=== PATIENT | male | born 1970 | race Caucasian/White ===

== ENCOUNTER 2020-01-01 18:40 | Emergency (ER) | payer OTHER ==
[2020-01-01] MEDS ORDERED: SODIUM CHLORIDE 1,000 ML IV STA (18:47)
[2020-01-01] MEDS ORDERED: ACETAMINOPHEN 1000 MG/100 ML VIAL (NON FORMULARY) IVPB ONE (18:47)
[2020-01-01] MEDS ORDERED: METOCLOPRAMIDE HCL INJECTION 10 MG/2 ML VIAL IVPB ONE (18:47)
--- NOTE | 2020-01-01 18:48 | PDOC ---
Rapid Medical Evaluation Time Seen by Provider: 01/01/20 18:44 Medical Evaluation: 01/01/20 18:44 Pt presents for evaluation of a headache for "months". He has seen his PCP and was told to take Tylenol and Motrin but has no relief of his symptoms. Woke up with worsening pain this morning so he came to the ER for evaluation. Admits to associated dizziness, light headedness. Exam: No gross neuro deficits, gait intact. BP 180/100 Orders: basic labs, IV Pt to proceed to the ER for further evaluation Discharge Disposition - Diagnosis Headache Qualifiers: Headache type: unspecified Headache chronicity pattern: acute headache Intractability: not intractable Qualified Code(s): R51 - Headache - Referrals - Patient Instructions - Post Discharge Activity
[2020-01-01 18:49] VITALS: TEMP 98.7; BMI 28.3
[2020-01-01 19:30] LABS: BASO % 0.2 % (0-2.0); HEMATOCRIT 41.8 % (35.4-49); HEMOGLOBIN 14.5 GM/dL (11.7-16.9); LYMPH % 22.1 % (8-40); MCH 30.2 pg (25.7-33.7); MCHC 34.6 g/dl (32.0-35.9); MEAN CELL VOLUME 87.3 fl (80-96); MEAN PLT VOLUME 8.9 fl (7.5-11.1); MONO % 8.6 % (3.8-10.2); NEUT % 68.1 % (42.8-82.8); PLATELET COUNT 203 K/MM3 (134-434); RBC 4.79 M/mm3 (4.00-5.60); RDW 13.3 % (11.9-15.9); WHITE BLOOD COUNT 5.1 K/mm3 (4.0-10.0)
--- NOTE | 2020-01-01 20:03 | PDOC ---
History of Present Illness - General Chief Complaint: Headache Stated Complaint: HEADACHE Time Seen by Provider: 01/01/20 18:44 - History of Present Illness Initial Comments: Clarke Vyas is a 49 y/o male with no reported PMH presenting today with headache. Reports that the headache has been going on for four months. Reports that the pain is intermittent, but does not occur at a specific time during the day. States that he cannot think of anything that exacerbates or relieves the headache. Reports that the headache is dull and occurs intermittently over the right parietal and occipital areas. No weakness. No jaw claudication. Reports mild lightheadedness. No fever/chills. No vision changes. No chest pain/shortness of breath. No abdominal pain. No back pain. No diarrhea/dysuria. He had a CT scan of the head in October [address] [facility] which was negative for acute intracranial pathology. His headache has not changed in quality since his visit to [facility]. Reports that he usually drinks over 10 beers each weekend, but tried to stop drinking two months ago to help with his headache. Reports that yesterday he drank 4-5 beers. Reports shaking in bilateral upper extremities. No hallucinations. Past History - Medical History Allergies/Adverse Reactions: Allergies Allergy/AdvReac Type Severity Reaction Status Date / Time No Known Allergies Allergy Verified 01/01/20 18:44 Home Medications: Ambulatory Orders Amoxicillin - [Amoxicillin 500mg Capsule -] 500 mg PO TID 5 Days #15 capsule Oxymetazoline HCl [Nasal Moca Sinus] 30 ml NS BID PRN 5 Days #1 spray 01/01/20 - Psycho-Social/Smoking History Smoking History: Never smoked Information on smoking cessation initiated: No - Substance Abuse Hx (Audit-C & DAST Scrn) In the last yr the pt used illegal drug/Rx for NonMed reason: No Score: Yes response is considered Positive: 0 Screen Result (Positive result requires Nsg. DAST-10): Negative Review of Systems - Review of Systems Comments:: GENERAL/CONSTITUTIONAL: No fever or chills. No weakness._ HEAD, EYES, EARS, NOSE AND THROAT: No change in vision. No change in hearing. No sore throat._ CARDIOVASCULAR: No chest pain or shortness of breath_ RESPIRATORY: Denies cough, hemoptysis_ GASTROINTESTINAL: No nausea, vomiting, diarrhea or constipation._ GENITOURINARY: No dysuria, frequency, or change in urination._ MUSCULOSKELETAL: No joint or muscle swelling or pain. No neck or back pain._ SKIN: No rash_ NEUROLOGIC: Reports headache. Reports mild lightheadedness. No vertigo, loss of consciousness, or change in strength/sensation._ ENDOCRINE: No increased thirst. No abnormal weight change_ HEMATOLOGIC/LYMPHATIC: No anemia, easy bleeding, or history of blood clots._ ALLERGIC/IMMUNOLOGIC: No hives or skin allergy._ *Physical Exam - Vital Signs Last Vital Signs Temp Pulse Resp BP Pulse Ox 98.7 F 88 18 159/76 100 01/01/20 18:44 01/01/20 19:25 01/01/20 19:25 01/01/20 19:25 01/01/20 19:25 - Physical Exam GENERAL: Awake, alert, and oriented to person/place/time, in no acute distress_ HEAD: No signs of trauma, normocephalic, atraumatic _ EYES: PERRLA, EOMI, sclera anicteric, conjunctiva clear_ ENT: Hearing grossly normal, nares patent, oropharynx clear without exudates. Erythematous ear canals bilaterally with mild bullous in the right superior TM. No uvular deviation. Moist mucosa. Positive tongue fasciculations. NECK: Normal ROM, supple, no lymphadenopathy, JVD, or masses_ LUNGS: No distress, speaks in full sentences, clear to auscultation bilaterally _ HEART: Regular rate and rhythm, normal S1 and S2, no murmurs appreciated, peripheral pulses normal and equal bilaterally._ ABDOMEN: Soft, nontender, normoactive bowel sounds. No guarding, no rebound. No masses_ EXTREMITIES: Bilateral tremors on outstretched arms. Normal range of motion, no edema. No clubbing or cyanosis_ NEUROLOGICAL: CN II-XII tested and intact. Sensation intact to sharp/dull differentiation in all extremities. Motor: Normal tone and bulk. No abnormal movements appreciated. No pronator drift. Strength tested and 5/5 in bilateral wrist flexion/extension, elbow flexion/extension, shoulder abduction, straight leg raise, knee flexion/ extension, ankle dorsiflexion/plantarflexion. Patient ambulates with a steady gait. Coordination: Finger to nose and heel to diallo testing intact bilaterally. SKIN: Warm, Dry, normal turgor, no rashes or lesions noted ED Treatment Course - LABORATORY CBC & Chemistry Diagram: 01/01/20 19:15 01/01/20 19:15 - ADDITIONAL ORDERS Additional order review: 01/01/20 19:15 RBC 4.79 MCV 87.3 MCHC 34.6 RDW 13.3 MPV 8.9 Neutrophils % 68.1 Lymphocytes % 22.1 Monocytes % 8.6 Eosinophils % 1.0 Basophils % 0.2 - Medications Given in the ED: ED Medications Discontinued Medications Generic Name Dose Route Start Last Admin Trade Name Aleksander PRN Reason Stop Dose Admin Acetaminophen 1,000 mg 01/01/20 18:47 01/01/20 20:01 Ofirmev Injection - IVPB 01/01/20 18:48 Not Given ONCE ONE Diphenhydramine HCl 12.5 mg 01/01/20 18:47 01/01/20 20:01 Benadryl Injection - IVPB 01/01/20 18:48 Not Given ONCE ONE Sodium Chloride 1,000 mls @ 1,000 mls/hr 01/01/20 18:47 01/01/20 20:01 Normal Saline - IV 01/01/20 19:46 Not Given ASDIR STA Metoclopramide HCl 10 mg 01/01/20 18:47 01/01/20 20:01 Reglan Injection - IVPB 01/01/20 18:48 Not Given ONCE ONE Medical Decision Making - Medical Decision Making 49M with no reported PMH presenting today with headache for the past four months. Reports ETOH use yesterday after [address] head negative at [facility] October 2019. Pain has slightly worsened but has not changed in quality since his CT scan. Neuro exam does not show any focal neuro findings. DDx includes ETOH withdrawal vs tension headache vs other intracranial pathology. -cbc, cmp -ekg -CT head -librium -urine 01/01/20 20:03 EKG shows 75 bpm, NSR, no axis deviation, CA 170, QTc 410, no ST elevation/depression. 01/01/20 20:43 Labs reviewed. Laboratory Last Values WBC 5.1 K/mm3 (4.0-10.0) 01/01/20 19:15 RBC 4.79 M/mm3 (4.00-5.60) 01/01/20 19:15 Hgb 14.5 GM/dL (11.7-16.9) 01/01/20 19:15 Hct 41.8 % (35.4-49) 01/01/20 19:15 MCV 87.3 fl (80-96) 01/01/20 19:15 MCH 30.2 pg (25.7-33.7) 01/01/20 19:15 MCHC 34.6 g/dl (32.0-35.9) 01/01/20 19:15 RDW 13.3 % (11.9-15.9) 01/01/20 19:15 Plt Count 203 K/MM3 (134-434) 01/01/20 19:15 MPV 8.9 fl (7.5-11.1) 01/01/20 19:15 Absolute Neuts (auto) 3.5 K/mm3 (1.5-8.0) 01/01/20 19:15 Neutrophils % 68.1 % (42.8-82.8) 01/01/20 19:15 Lymphocytes % 22.1 % (8-40) 01/01/20 19:15 Monocytes % 8.6 % (3.8-10.2) 01/01/20 19:15 Eosinophils % 1.0 % (0-4.5) 01/01/20 19:15 Basophils % 0.2 % (0-2.0) 01/01/20 19:15 Nucleated RBC % 0 % (0-0) 01/01/20 19:15 Sodium 140 mmol/L (136-145) 01/01/20 19:15 Potassium 4.3 mmol/L (3.5-5.1) 01/01/20 19:15 Chloride 108 mmol/L (98-107) H 01/01/20 19:15 Carbon Dioxide 22 mmol/L (21-32) 01/01/20 19:15 Anion Gap 10 MMOL/L (8-16) 01/01/20 19:15 BUN 14.3 mg/dL (7-18) 01/01/20 19:15 Creatinine 1.0 mg/dL (0.55-1.3) 01/01/20 19:15 Est GFR (CKD-EPI)AfAm 100.55 01/01/20 19:15 Est GFR (CKD-EPI)NonAf 86.76 01/01/20 19:15 Random Glucose 142 mg/dL (74-106) H 01/01/20 19:15 Calcium 9.2 mg/dL (8.5-10.1) 01/01/20 19:15 Total Bilirubin 0.4 mg/dL (0.2-1) 01/01/20 19:15 AST 20 U/L (15-37) 01/01/20 19:15 ALT 42 U/L (13-61) 01/01/20 19:15 Alkaline Phosphatase 81 U/L (45-117) 01/01/20 19:15 Total Protein 7.7 g/dl (6.4-8.2) 01/01/20 19:15 Albumin 4.0 g/dl (3.4-5.0) 01/01/20 19:15 Urine Color Yellow 01/01/20 20:10 Urine Appearance Clear 01/01/20 20:10 Urine pH 5.0 (5.0-8.0) 01/01/20 20:10 Ur Specific Baxter 1.011 (1.010-1.035) 01/01/20 20:10 Urine Protein Negative (NEGATIVE) 01/01/20 20:10 Urine Glucose (UA) Negative (NEGATIVE) 01/01/20 20:10 Urine Ketones Negative (NEGATIVE) 01/01/20 20:10 Urine Blood Negative (NEGATIVE) 01/01/20 20:10 Urine Nitrite Negative (NEGATIVE) 01/01/20 20:10 Urine Bilirubin Negative (NEGATIVE) 01/01/20 20:10 Urine Urobilinogen 0.2 mg/dL (0.2-1.0) 01/01/20 20:10 Ur Leukocyte Esterase Negative (NEGATIVE) 01/01/20 20:10 01/01/20 21:21 CT head negative for acute intracranial pathology. 01/01/20 22:49 Pt reassessed. Reports moderate improvement after reglan, benadryl, fluids, tylenol. Plan to d/c to [facility] for etoh detox. Will start amoxicillin for otitis media. Rpt neuro exam shows no focal neuro findings. All questions answered. Strict return precautions given. Pt verbalized understanding and agreement with plan. Discharge - Discharge Information Problems reviewed: Yes Clinical Impression/Diagnosis: Alcohol withdrawal Headache Qualifiers: Headache type: unspecified Headache chronicity pattern: acute headache Intractability: not intractable Qualified Code(s): R51 - Headache Condition: Stable Disposition: HOME - Admission No - Additional Discharge Information Prescriptions: Amoxicillin - [Amoxicillin 500mg Capsule -] 500 mg PO TID 5 Days #15 capsule Oxymetazoline HCl [Nasal Moca Sinus] 30 ml NS BID PRN 5 Days #1 spray PRN Reason: Nasal Congestion - Follow up/Referral - Patient Discharge Instructions Patient Printed Discharge Instructions: Middle Ear Infection, DI for Headache, DI for Drug or Alcohol Withdrawal Additional Instructions: Please proceed to [facility] for alcohol detox and rehab. Please take amoxicillin 500 mg three times a day for 5 days. Please make a follow up appointment with your primary care doctor. If you experience any new, worsening, or concerning symptoms, including worsening headache, dizziness, nausea, vomiting, numbness, tingling, weakness, or any other concerns, please return to the emergency department. - Post Discharge Activity CIWA Nausea/Vomitin Muscle Tremors: 5 Anxiety: 2 Agitation: 3 Paroxysmal Sweats: 1-Minimal Palms Moist Orientation: 0-Oriented Tacttile Disturbances: 0-None Auditory Disturbances: 0-None Visual Disturbances: 0-None Headache: 4-Moderately Severe CIWA-Ar Total Score: 18
[2020-01-01 20:10] LABS: BILIRUBIN,TOTAL 0.4 mg/dL (0.2-1); BLOOD UREA NITROGEN 14.3 mg/dL (7-18); CALCIUM 9.2 mg/dL (8.5-10.1); POTASSIUM 4.3 mmol/L (3.5-5.1); TOT PROT 7.7 g/dl (6.4-8.2)
[2020-01-01 20:37] LABS: URINE APPEARANCE CLEAR; URINE BILIRUBIN NEGATIVE (NEGATIVE); URINE COLOR YELLOW; URINE GLUCOSE (UA) NEGATIVE (NEGATIVE); URINE KETONE NEGATIVE (NEGATIVE); URINE LEUK ESTERASE NEGATIVE (NEGATIVE); URINE NITRITE NEGATIVE (NEGATIVE); URINE PROTEIN NEGATIVE (NEGATIVE); URINE UROBILINOGEN 0.2 mg/dL (0.2-1.0)
[2020-01-01] MEDS ORDERED: chlordiazePOXIDE HCL 25 MG CAPSULE PO ONE (21:09)
[2020-01-01] MEDS ORDERED: chlordiazePOXIDE HCL 25 MG CAPSULE ONE (21:33)
[2020-01-01] MEDS ORDERED: ACETAMINOPHEN INJECTION 100 ML IVPB ONE (21:43)
[2020-01-01] MEDS ORDERED: METOCLOPRAMIDE HCL INJECTION 10 MG/2 ML VIAL ONE (21:44)
[2020-01-01 23:09] VITALS: BP 144/79; PULSE 80
--- NOTE | 2020-01-01 23:11 | PDOC ---
Attending Attestation - Resident Resident Name: Zen Garcia - HPI HPI: 01/01/20 23:06 Pt presents to the ED complaining of frontal headache that has been chronic for 4-5 months but was worse today. Also has a history of chronic ETOH use. Has had workup in the past including a CT head that was negative. 01/01/20 23:11 - Physicial Exam PE: 01/01/20 23:12 Agree with resident exam. Patient is alert and oriented and in no acute dist ress. Neuro: CN 2-12 grossly intact. Ambulatory with steady gait. CV: rrr no m/r/g Pulm: CTA b/l abdomen: soft, non tender, non distended, no guarding or rebound. - Medical Decision Making 01/01/20 23:14 Pt presents to the ED complaining of chronic headache. + signs of otitis on resident exam. CT head negative for acute findings. Patient has signs and symptoms of ETOH withdrawal that improved with librium and desires detox. Will treat for otitis. Discharge - Discharge Information Problems reviewed: Yes Clinical Impression/Diagnosis: Alcohol withdrawal Headache Qualifiers: Headache type: unspecified Headache chronicity pattern: acute headache Intractability: not intractable Qualified Code(s): R51 - Headache Condition: Stable Disposition: HOME - Additional Discharge Information Prescriptions: Amoxicillin - [Amoxicillin 500mg Capsule -] 500 mg PO TID 5 Days #15 capsule Oxymetazoline HCl [Nasal Delano Sinus] 30 ml NS BID PRN 5 Days #1 spray PRN Reason: Nasal Congestion - Follow up/Referral - Patient Discharge Instructions Patient Printed Discharge Instructions: Middle Ear Infection, DI for Headache, DI for Drug or Alcohol Withdrawal Additional Instructions: Please proceed to [facility] for alcohol detox and rehab. Please take amoxicillin 500 mg three times a day for 5 days. Please make a follow up appointment with your primary care doctor. If you experience any new, worsening, or concerning symptoms, including worsening headache, dizziness, nausea, vomiting, numbness, tingling, weakness, or any other concerns, please return to the emergency department. - Post Discharge Activity
--- NOTE | 2020-01-03 17:34 | EKG ---
Test Reason : Blood Pressure : / mmHG Vent. Rate : 075 BPM Atrial Rate : 075 BPM P-R Int : 170 ms QRS Dur : 076 ms QT Int : 368 ms P-R-T Axes : 033 -11 -03 degrees QTc Int : 410 ms NORMAL SINUS RHYTHM NORMAL ECG NO PREVIOUS ECGS AVAILABLE Confirmed by MD Felicita, Rex ([id number]) on 01/03/2020 5:34:28 PM Referred By: Confirmed By:Rex Mims MD
== END 2020-01-01 23:17 | disposition home or self-care (01) ==
LOC: JER 18:40
PROC: 3E0333Z Introduction of Anti-inflammatory into Peripheral Vein, Percutaneous Approach (ICD-10-PCS; principal; 2020-01-01)
PROC: 3E033GC Introduction of Other Therapeutic Substance into Peripheral Vein, Percutaneous Approach (ICD-10-PCS; 2020-01-01)
PROC: 3E0337Z Introduction of Electrolytic and Water Balance Substance into Peripheral Vein, Percutaneous Approach (ICD-10-PCS; 2020-01-01)
DX: F10.239 Alcohol dependence with withdrawal, unspecified (principal); R51 Headache
CPT/HCPCS: 36415; 70450-TC; 80053; 81003; 85025; 93005; 93010; 99285-25